=== PATIENT | female | born 1965 | race Caucasian/White ===

== ENCOUNTER 2019-08-18 09:14 | Outpatient (CLI) | payer OTHER | END 2019-08-18 23:59 | disposition home or self-care (01) | LOC: CFH 09:14 | PROVIDERS: ATTEND Obstetrics & Gynecology Gynecology | DX: Z12.31 Encounter for screening mammogram for malignant neoplasm of breast (principal); N60.01 Solitary cyst of right breast; N64.89 Other specified disorders of breast | CPT/HCPCS: 76641; 77063; 77067 ==